=== PATIENT | female | born 1930 | race Caucasian/White ===

== ENCOUNTER 2016-09-05 09:23 | Day surgery (SDC) | payer MEDICARE ==
[2016-09-05] MEDS ORDERED: Lactated Ringers 1,000 ML IV SCH (10:00)
[2016-09-05] MEDS ORDERED: fentaNYL 100 MCG/2 ML SDV ONE (10:40)
[2016-09-05] MEDS ORDERED: Propofol 200 MG/20 ML SDV ONE (10:40)
[2016-09-05] MEDS ORDERED: Ondansetron 4 MG/2 ML SDV ONE (11:08)
[2016-09-05 14:23] VITALS: BP 115/81
--- NOTE | 2016-09-06 11:31 | OR ---
DATE OF PROCEDURE: 09/05/2016 PREOPERATIVE DIAGNOSIS: Change in bowel habits manifested by pencil thin stools. POSTOPERATIVE DIAGNOSIS: Diverticulosis; small area of left colon colitis; change in bowel habits manifested by pencil thin stools, etiology unknown. PROCEDURE: Colonoscopy to the cecum with biopsy of short segment of left colon colitis. ANESTHESIA: IV anesthesia with monitored anesthesia care. INDICATIONS: This 85-year-old white female is referred for a colonoscopy because of a change in bowel habits. She notes her stools have become pencil thin. She says her last colonoscopic exam was done in 2008. I counseled her for a colonoscopy with possible biopsy and/or polypectomy including risks and alternatives, and she gave her informed consent to proceed. DESCRIPTION OF PROCEDURE: The patient was placed in the left lateral decubitus position. IV anesthesia was administered by the Anesthesia Service. Time-out was held. A rectal exam was performed, which was unremarkable. The flexible video Olympus colonoscope was introduced through her anus, up her rectum, and out her colon all the way to the cecum. In the left colon, we saw a short segment of the inflammation which we biopsied. Additionally in the left side, we saw multiple diverticula. There was no bleeding or inflammation associated with any of them. To reached the cecum, we had to apply some abdominal compression. Once the cecum was reached, the scope was slowly withdrawn examining the mucosa throughout. No additional mucosal abnormalities were noted. The scope was retroflexed in the rectum with the distal rectum appearing unremarkable. The scope was straightened and removed. She tolerated the procedure well. Sebastian Carrasquillo MD /[id number] MTDD
== END 2016-09-05 14:51 | disposition home or self-care (01) ==
LOC: JP.SDS 09:23
PROVIDERS: ATTEND Surgery
PROC: 0DBM8ZX Excision of Descending Colon, Via Natural or Artificial Opening Endoscopic, Diagnostic (ICD-10-PCS; principal; 2016-09-05)
DX: R19.4 Change in bowel habit (principal); K52.9 Noninfective gastroenteritis and colitis, unspecified; K57.30 Diverticulosis of large intestine without perforation or abscess without bleeding
CPT/HCPCS: 45380; J2405; J2704; J3010; J7120; 88305

== ENCOUNTER 2020-03-29 13:56 | Emergency (ER) | payer MEDICARE, OTHER ==
[2020-03-29 16:06] VITALS: BP 159/70; PULSE 68
--- NOTE | 2020-03-29 16:11 | EDM.PDOC ---
ED HPI GENERAL MEDICAL PROBLEM - General Chief Complaint: Syncope Stated Complaint: POSSIBLE STROKE Time Seen by Provider: 03/29/20 15:25 Source of Information: Reports: Patient, Family History Limitations: Reports: No Limitations - History of Present Illness INITIAL COMMENTS - FREE TEXT/NARRATIVE: 89-year-old female who had syncopal episode 3 hours ago at home while working in the basement of their home. She she was sitting down after putting things in her freezer, felt lightheaded and woozy and unwell. No chest pain or shortness of breath, no nausea or vomiting. She then slowly she slumped to the floor and her caught her, she had a minute or 2 confusion and expressive aphasia and dysarthria and he thought she was having a stroke. He said he was going to take her to the hospital but she kept saying no no so he did not. Now she feels back to baseline but was thinking about what happened and wanted to be checked out. Onset: Sudden Duration: Hour(s): (3 hours ago) Associated Symptoms: Reports: Confusion, Diaphoresis, Malaise, Weakness (Opioid hours). Denies: Chest Pain, Cough - Related Data Allergies Allergy/AdvReac Type Severity Reaction Status Date / Time amoxicillin [Amoxicillin] Allergy Shaking Verified 03/29/20 15:11 gluten Allergy Stomach Verified 03/29/20 15:11 Upset nickel Allergy Rash Verified 03/29/20 15:11 Home Meds: Home Meds Pramipexole [Mirapex] 0.25 mg PO QPM 09/03/16 [History] Fish Oil/Borage/Flax/Om3,6,9 1 [[place] 3-6-9 1,200 mg Softgel] 1 tab PO DAILY 09/05/16 [History] Carbidopa/Levodopa [Carbidopa-Levo 10-100 mg Odt] 1 each PO TID 03/29/20 [History] Cholecalciferol (Vitamin D3) [Vitamin D] 1,000 unit PO DAILY 03/29/20 [History] Lutein 40 mg PO DAILY 03/29/20 [History] Past Medical History HEENT History: Reports: Cataract, Impaired Vision, Macular Degeneration, Retinal Detachment Other HEENT History: wears glasses Cardiovascular History: Reports: SOB on Exertion Respiratory History: Reports: Asthma Gastrointestinal History: Reports: Chronic Constipation, Chronic Diarrhea, Diverticulosis, GERD, Other (See Below) Genitourinary History: Reports: None 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: Musculoskeletal History: Reports: Arthritis, Back Pain, Chronic, Neck Pain, Chronic Oncologic (Cancer) History: Reports: Breast Dermatologic History: Reports: Other (See Below) Other Dermatologic History: rash bilat hands - Infectious Disease History Infectious Disease History: Reports: Chicken Pox, Measles, Mumps - Past Surgical History HEENT Surgical History: Reports: Cataract Surgery, Detached Retina, Eye Surgery Cardiovascular Surgical History: Reports: None Respiratory Surgical History: Reports: None GI Surgical History: Reports: Cholecystectomy, Colonoscopy Female Surgical History: Reports: Mastectomy Musculoskeletal Surgical History: Reports: Knee Replacement, Other (See Below) Other Musculoskeletal Surgeries/Procedures:: vein stripped bilat legs Oncologic Surgical History: Reports: Mastectomy Dermatological Surgical History: Reports: None Social & Family History - Tobacco Use Tobacco Use Status *Q: Never Tobacco User - Caffeine Use Caffeine Use: Reports: Coffee ED ROS GENERAL - Review of Systems Review Of Systems: See Below Constitutional: Reports: Malaise. Denies: Fever, Chills HEENT: Reports: No Symptoms Respiratory: Denies: Shortness of Breath, Cough Cardiovascular: Denies: Chest Pain GI/Abdominal: Denies: Nausea, Vomiting Musculoskeletal: Reports: No Symptoms Skin: Reports: Diaphoresis Neurological: Reports: Syncope ED EXAM, NEURO - Physical Exam Exam: See Below Exam Limited By: No Limitations General Appearance: Alert, No Apparent Distress Eye Exam: Bilateral Eye: Normal Inspection Head Exam: Atraumatic Neck: Normal Inspection, Non-Tender Respiratory/Chest: Lungs Clear Cardiovascular: Regular Rate, Rhythm. No: Tachycardia GI/Abdominal: Soft, Non-Tender Neurological: Alert, Normal Mood/Affect, No Motor/Sensory Deficits, Oriented x 3 Extremities: Normal Inspection Psychiatric: Normal Affect, Normal Mood Skin Exam: Warm, Dry Course - Vital Signs Last Recorded V/S: Last Vital Signs Temp 97.1 F 03/29/20 15:10 Pulse 68 03/29/20 16:05 Resp 12 03/29/20 16:05 BP 159/70 H 03/29/20 16:05 Pulse Ox 97 03/29/20 16:05 - Orders/Labs/Meds Labs: Laboratory Tests 03/29/20 03/29/20 Range/Units 15:41 15:41 WBC 6.9 (4.5-11.0) K/uL RBC 4.10 (3.30-5.50) M/uL Hgb 12.9 (12.0-15.0) g/dL Hct 39.1 (36.0-48.0) % MCV 95 (80-98) fL MCH 32 H (27-31) pg MCHC 33 (32-36) % Plt Count 332 (150-400) K/uL Neut % (Auto) 77 H (36-66) % Lymph % (Auto) 16 L (24-44) % [place] % (Auto) 6 (2-6) % Eos % (Auto) 1 L (2-4) % Baso % (Auto) 1 (0-1) % Sodium 132 L (140-148) mmol/L Potassium 4.5 (3.6-5.2) mmol/L Chloride 97 L (100-108) mmol/L Carbon Dioxide 29 (21-32) mmol/L Anion Gap 10.5 (5.0-14.0) mmol/L BUN 11 (7-18) mg/dL Creatinine 0.9 (0.6-1.0) mg/dL Est Cr Clr Drug Dosing 30.44 mL/min Estimated GFR (MDRD) 59 L (>60) Glucose 103 (74-106) mg/dL Calcium 8.9 (8.5-10.1) mg/dL Total Bilirubin 0.6 (0.2-1.0) mg/dL AST 23 (15-37) U/L ALT 19 (12-78) U/L Alkaline Phosphatase 84 (46-116) U/L Total Protein 6.8 (6.4-8.2) g/dL Albumin 3.6 (3.4-5.0) g/dL Globulin 3.2 (2.3-3.5) g/dL Albumin/Globulin Ratio 1.1 L (1.2-2.2) - Re-Assessments/Exams Free Text/Narrative Re-Assessment/Exam: 03/29/20 16:40 Patient was kept on cardiac monitoring while a CBC and CMP were obtained. Her blood pressure normalized, she remained in a sinus rhythm and her labs returned very reassuring for her age. She will be discharged with a diagnosis of vasovagal syncope and will return if symptoms are recurring. Departure - Departure Time of Disposition: 17:02 Disposition: Home, Self-Care 01 Clinical Impression: Vasovagal syncope - Discharge Information Instructions: Syncope, [id number] Referrals: Vita Bran MD [Primary Care Provider] - Forms: ED Department Discharge Care Plan Goals: Lots of fluids, increase activity as tolerated and return if symptoms are recurring or you develop other concerns. Sepsis Event Note (ED) - Evaluation Sepsis Screening Result: No Definite Risk
== END 2020-03-29 17:02 | disposition home or self-care (01) ==
LOC: JP.ED 13:56
DX: R55 Syncope and collapse (principal); R61 Generalized hyperhidrosis; J45.909 Unspecified asthma, uncomplicated; Z88.0 Allergy status to penicillin; Z91.018 Allergy to other foods; Z91.048 Other nonmedicinal substance allergy status
CPT/HCPCS: 36415; 80053; 85025; 99282; 99284